=== PATIENT | male | born 1990 | race African-American/Black ===

== ENCOUNTER 2017-01-01 20:11 | Emergency (ER) | payer OTHER ==
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
== END 2017-01-01 23:12 | disposition home or self-care (01) ==
LOC: CFTX 20:11 → CED 20:11 → CFTX 22:12
DX: S16.1XXA Strain of muscle, fascia and tendon at neck level, initial encounter (principal); F17.210 Nicotine dependence, cigarettes, uncomplicated; V89.2XXA Person injured in unspecified motor-vehicle accident, traffic, initial encounter; Y92.410 Unspecified street and highway as the place of occurrence of the external cause
CPT/HCPCS: 72040; 96372; 99284; J1885